=== PATIENT | male | born 1995 | race Two or more races ===

== ENCOUNTER 2021-03-04 13:58 | Emergency (ER) | payer OTHER ==
[~2021-03-04] VITALS: Ht 182.9 cm; Wt 75.0 kg
[2021-03-04 14:05] VITALS: BP 125/77
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
[2021-03-04] MEDS: LORazepam 1 MG TABLET PO ONE (14:57)
[2021-03-04 15:17] LABS: BASO % 1 % (0-3); EOS # 0.1 x10^3/uL (0.0-0.7); EOS % 1 % (0-3); HEMATOCRIT 41.3 % (39.0-53.0); HEMOGLOBIN 13.8 g/dL (13.0-17.5); LYMPH # 1.8 x10^3/uL (1.0-4.8); LYMPH % 27 % (24-48); MEAN CORPUSCULAR HEMOGLOBIN 31 pg (25-35); MEAN CORPUSCULAR HGB CONC 33 g/dL (31-37); MEAN CORPUSCULAR VOLUME 93 fL (79-100); MONO # 0.4 x10^3/uL (0.0-1.1); MONO % 6 % (0-9); NEUT # 4.4 x10^3uL (1.8-7.7); NEUT % 65 % (31-73); PLATELET COUNT 220 x10^3/uL (140-400); RED BLOOD COUNT 4.43 x10^6/uL (4.30-5.70); RED CELL DISTRIBUTION WIDTH 12.3 % (11.5-14.5); WHITE BLOOD COUNT 6.8 x10^3/uL (4.0-11.0)
[2021-03-04 15:27] LABS: CALCIUM 9.6 mg/dL (8.5-10.1); CREATININE 0.9 mg/dL (0.7-1.3); POTASSIUM 4.3 mmol/L (3.5-5.1)
[2021-03-04 15:33] LABS: ALBUMIN 4.3 g/dL (3.4-5.0); ALBUMIN/GLOBULIN RATIO 1.3 (1.0-1.7); TOTAL BILIRUBIN 0.9 mg/dL (0.2-1.0); TOTAL PROTEIN 7.7 g/dL (6.4-8.2)
--- NOTE | 2021-03-04 16:28 | EKG ---
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
== END 2021-03-04 16:30 | disposition home or self-care (01) ==
LOC: ER 13:58
DX: R07.89 Other chest pain (principal)
CPT/HCPCS: 36415; 71045; 80053; 84484; 85025; 93005; 99285-25

== ENCOUNTER 2021-05-30 18:34 | Emergency (ER) | payer OTHER ==
[~2021-05-30] VITALS: Ht 182.9 cm; Wt 76.0 kg
--- NOTE | 2021-05-30 18:53 | PHYS DOC ---
Past History Past Medical History: No Pertinent History (SOUMYA MANN APRN) Past Surgical History: Appendectomy (SOUMYA MANN APRN) Smoking: Non-smoker Alcohol Use: None Drug Use: None (SOUMYA MANN APRN) General Adult EDM: Chief Complaint: ANKLE PROBLEM HPI: HPI: Patient is a 26-year-old male who presents to the emergency department for left ankle pain after injuring it while playing basketball. Patient reports that his ankle rolled outwards while he was playing. He rates his pain 3 out of 10 with movement it is 7 out of 10. He is able to bear weight and ambulate. He denies any decreased range of motion or decrease sensation in his extremity. (SOUMYA MANN APRN) Review of Systems: Review of Systems: Musculoskeletal: See HPI Integument: See HPI Neurologic: See HPI (SOUMYA MANN APRN) Allergies: Allergies: Allergies Coded Allergies Type Severity Reaction Last Updated Verified Penicillins Allergy Unknown 03/04/21 Yes (SOUMYA MANN APRN) Physical Exam: PE: Constitutional: Well developed, well nourished, no acute distress, non-toxic appearance. [] HENT: Normocephalic, atraumatic, bilateral external ears normal, oropharynx moist, no oral exudates, nose normal. [] Eyes: PERRL, EOMI, conjunctiva normal, no discharge. [] Neck: Normal range of motion, no stridor Cardiovascular: Normal peripheral perfusion Lungs & Thorax: Normal work of breathing, no tachypnea Abdomen: Soft and flat Skin: Warm, dry, no erythema, no rash. [] Back: Normal range of motion Extremities: No tenderness, no cyanosis, no clubbing, ROM intact, no edema. [] Left ankle: Swelling and pain noted to lateral aspect of left ankle, no obvious deformity, no open wounds or ecchymosis, neuro intact, range of motion intact Neurologic: Alert and oriented X 3, normal motor function, normal sensory function, no focal deficits noted. [] Psychologic: Affect normal, judgement normal, mood normal. [] (SOUMYA MANN APRN) EKG: EKG: [] (SOUMYA MANN APRN) Radiology/Procedures: Radiology/Procedures: []PROCEDURE: ANKLE LEFT 3V XR EXAM OF ANKLE_LEFT 3V History: Reason: ankle injury / Spl. Instructions: / History: . Pain Technique: 3 views left ankle Comparison: None. Findings: Lateral ankle soft tissue swelling. No dislocation. No acute fracture. Probable ankle joint effusion. Impression: 1. No acute osseous abnormality. 2. Lateral ankle soft tissue swelling. Electronically signed by: Gustavo Salter DO (05/30/2021 7:33 PM) [facility] DICTATED AND SIGNED BY: GUSTAVO SALTER DO DATE: 05/30/211931 CC: SOUMYA MANN APRN; PCP,UNKNOWN ~MTH0 0 (SOUMYA MANN APRN) Heart Score: C/O Chest Pain: N/A Risk Factors: Risk Factors: DM, Current or recent (<one month) smoker, HTN, HLP, family history of CAD, obesity. Risk Scores: Score 0 - 3: 2.5% MACE over next 6 weeks - Discharge Home Score 4 - 6: 20.3% MACE over next 6 weeks - Admit for Clinical Observation Score 7 - 10: 72.7% MACE over next 6 weeks - Early Invasive Strategies (SOUMYA MANN APRN) Course & Med Decision Making: Course & Med Decision Making Pertinent Labs and Imaging studies reviewed. (See chart for details) [] Patient presents to the emergency department for left lateral ankle pain after he twisted it while playing basketball. An x-ray was performed that showed no acute fracture as read by this GAME ROOM ATTENDANT and physician. He is neurovascularly intact. Patient's ankle placed in an Cuco wrap and he was educated on the rice protocol. Advised to take anti-inflammatory medications. I discussed with patient all findings and diagnostic testing as well as the need to follow-up with PCP for further evaluation and treatment or return to the ER if any new or worsening symptoms. Strict return precautions were also discussed at length. Patient voiced understanding and agreement with the plan. Patient is hemodynamically stable at the time of disposition. (SOUMYA MANN APRN) Dragon Disclaimer: Dragon Disclaimer: This electronic medical record was generated, in whole or in part, using a voice recognition dictation system. (SOUMYA MANN APRN) Departure Departure: Impression: Primary Impression: Ankle sprain Qualified Codes: S93.402A - Sprain of unspecified ligament of left ankle, initial encounter Disposition: HOME / SELF CARE / HOMELESS Condition: GOOD Referrals: PCP,UNKNOWN (PCP) Patient Instructions: SERINA - Routine Care for Injuries Additional Instructions: You were seen in the emergency department today for left ankle pain. Your x-ray was performed that showed no acute findings. This will likely improve over time. Your symptoms may be improved by something called the rice protocol. T his is rest, ice, compression, elevation. Please follow-up when doing intense exercises that may make the pain worse. Sometimes gentle stretching can provide relief, but be careful to injury. It is important to perform gentle range of motion exercises to prevent stiff joints and chronic pain. Use ice packs over the affected areas to help decrease your pain. For the first 24 hours you can apply ice 20 minutes on 20 minutes off for 4 times per day. Sometimes compression such as the use of an Cuco wrap can help with the swelling. You may also elevate the affected area to help with the swelling. Please take Tylenol and ibuprofen for any pain at home. Follow-up with your primary care provider within a week. Return to the emergency department if you develop worsening of your pain, inability to bear weight, decreased range of motion or decreased sensation in your extremity. Scripts Ibuprofen (IBUPROFEN) 200 Mg Tablet 600 MG PO QIDPRN PRN for PAIN for 7 Days, #28 TAB 0 Refills Prov: SOUMYA MANN APRN 05/30/21 Acetaminophen (ACETAMINOPHEN) 500 Mg Tablet 1 TAB PO PRN Q6HRS PRN for pain or fever for 7 Days, #28 TAB 0 Refills Prov: SOUMYA MANN APRN 05/30/21 Attending Signature Attending Signature I have participated in the care of this patient and I have reviewed and agree with all pertinent clinical information above including history, exam, and recommendations. (VANDA TOBIN MD) Dragon Disclaimer This chart was dictated in whole or in part using Voice Recognition software in a busy, high-work load, and often noisy Emergency Department environment. It may contain unintended and wholly unrecognized errors or omissions. (VANDA TOBIN MD) SOUMYA MANN APRN May 30, 2021 18:53 VANDA TOBIN MD Jun 01, 2021 02:45
[2021-05-30 18:55] VITALS: BP 131/81
--- NOTE | 2021-05-30 19:35 | RAD ---
XR EXAM OF ANKLE_LEFT 3V History: Reason: ankle injury / Spl. Instructions: / History: . Pain Technique: 3 views left ankle Comparison: None. Findings: Lateral ankle soft tissue swelling. No dislocation. No acute fracture. Probable ankle joint effusion. Impression: 1. No acute osseous abnormality. 2. Lateral ankle soft tissue swelling. Electronically signed by: Gustavo Stein DO (05/30/2021 7:33 PM) [facility]
[2021-05-30] MEDS ORDERED: ACET500T68 PO (20:40)
[2021-05-30] MEDS ORDERED: IBUP-1673 PO (20:40)
[2021-05-30] MEDS ORDERED: IBUPROFEN 600 MG TABLET. PO ONE (21:00)
[2021-05-30] MEDS ORDERED: ACETAMINOPHEN 325 MG TABLET PO ONE (21:00)
== END 2021-05-30 20:20 | disposition home or self-care (01) ==
LOC: ER 18:34
DX: S93.402A Sprain of unspecified ligament of left ankle, initial encounter (principal); Z88.0 Allergy status to penicillin; X50.9XXA Other and unspecified overexertion or strenuous movements or postures, initial encounter; Y93.67 Activity, basketball; Y92.89 Other specified places as the place of occurrence of the external cause; Y99.8 Other external cause status
CPT/HCPCS: 73610; 99283